=== PATIENT | male | born 1960 | race Caucasian/White ===

== ENCOUNTER 2022-03-17 14:02 | Emergency (ER) | payer BC ==
[2022-03-17 15:08] VITALS: BP 140/61; PULSE 78; TEMP 98.2; BMI 26.5
== END 2022-03-17 15:54 | disposition home or self-care (01) ==
LOC: FER 14:02
PROC: 0H96XZZ Drainage of Back Skin, External Approach (ICD-10-PCS; principal; 2022-03-17)
DX: L02.212 Cutaneous abscess of back [any part, except buttock and flank] (principal)
CPT/HCPCS: 99283-25